=== PATIENT | male | born 1935 | race Caucasian/White ===

== ENCOUNTER 2017-06-12 14:31 | Inpatient (IN) | payer MEDICARE, MEDICAID, OTHER ==
[~2017-06-12] VITALS: Ht 182.9 cm; Wt 101.2 kg
[~2017-06-12 14:31] MED LIST: ALBU6.7H INH; AMLO5TAB PO; BETA1TAB18 PO; CEPH500C5 PO; DOCU250C4 PO; FINA5TAB11 PO; FLO0.4C PO; IRON-32 PO; LEVO25TA7 PO; MOME17SP BOTHNARES; MV-M1TAB2 PO; PANT-47 PO; PHEN-716 PO; SENN1TAB89
[2017-06-12] MEDS ORDERED: acetaminophen 325mg tablet PO STA (14:49)
[2017-06-12] MEDS ORDERED: cefepime 2g/NS 100ml ADVANTAGE 100 ML IV SCH (15:05)
[2017-06-12 15:07] LABS: CLARITY,URINE CLOUDY (Clear); COLOR,URINE YELLOW (Yellow); GLUCOSE, URINE NEGATIVE (Neg); KETONES,URINE NEGATIVE (Neg); LEUKOCYTE ESTERASE ,URINE MODERATE (Neg); NITRITES, URINE POSITIVE (Neg); OCCULT BLOOD,URINE LARGE (Neg); PROTEIN,URINE >=300 mg/dl (Neg); UROBILINOGEN,URINE 0.2 E.U/dL (0.2-1.0)
[2017-06-12 15:08] LABS: UA COLLECTION TYPE CLN CATCH MIDSTREAM
[2017-06-12 15:13] LABS: BACTERIA,URINE 2+ /HPF (Neg); RBC,URINE TNTC /HPF (0-2); WBC,URINE 50-100 /HPF (0-4)
[2017-06-12 15:15] LABS: SQUAMOUS EPITHELIAL CELL,UR FEW /LPF (FEW)
[2017-06-12] MEDS ORDERED: ondansetron/PF 4mg/2ml inj IV ONE (15:15)
[2017-06-12] MEDS ORDERED: normal saline 1000ML IV soln IVB ONE ×2 (15:15→18:15)
[2017-06-12 15:41] LABS: BASOPHILS % (AUTO) 0 % (0-1); EOSINOPHILS % (AUTO) 0.4 % (0-6); HEMATOCRIT 29.6 % (42.0-52.0); HEMOGLOBIN 9.9 g/dl (14.0-17.9); LYMPHOCYTES # (AUTO) 0.5 X10'3 (1.1-4.8); LYMPHOCYTES % (AUTO) 7.8 % (21-51); MEAN CORPUSCULAR HEMOGLOBIN 36.5 PG (27.0-31.0); MEAN CORPUSCULAR HGB CONC 33.6 % (33.0-36.5); MEAN CORPUSCULAR VOLUME 108.8 FL (78-98); MONOCYTES # (AUTO) 0.4 X10'3 (0-0.9); MONOCYTES % (AUTO) 5.5 % (2-12); NEUTROPHILS # (AUTO) 5.8 X10'3 (1.8-7.7); NEUTROPHILS % (AUTO) 86.3 % (42-75); PLATELET COUNT 157 X10'3 (140-440); RED BLOOD COUNT 2.72 X10'6 (4.70-6.10); RED CELL DISTRIBUTION WIDTH 19.6 % (11.5-14.5); WHITE BLOOD COUNT 6.7 X10'3 (4.5-11.0)
[2017-06-12 15:49] LABS: INR 1.3 INR; PARTIAL THROMBOPLASTIN TIME 27 SECONDS (22-32); PROTHROMBIN TIME 13.4 SECONDS (9.0-12.0)
[2017-06-12 15:54] LABS: ALANINE AMINOTRANSFERASE 38 U/L (12-78); ALBUMIN 2.2 G/DL (3.4-5.0); ALBUMIN/GLOBULIN RATIO 0.4 (1.1-1.5); ALKALINE PHOSPHATASE 125 IU/L (46-116); ANION GAP 4 (8-16); ASPARTATE AMINO TRANSFERASE 69 U/L (10-37); BILIRUBIN,TOTAL 0.9 MG/DL (0.1-1.0); BLOOD UREA NITROGEN 25 MG/DL (7-18); BUN/CREATININE RATIO 19.2 (5.4-32.0); CALCIUM 8.2 MG/DL (8.5-10.1); CHLORIDE 105 MMOL/L (99-107); GLUCOSE 104 MG/DL (70-104); MAGNESIUM 1.4 MG/DL (1.5-2.4); POTASSIUM 4.5 MMOL/L (3.5-5.1); SODIUM 135 MMOL/L (135-145); TOTAL CARBON DIOXIDE 26.4 MMOL/L (24-32); TOTAL PROTEIN 7.1 G/DL (6.4-8.2); eGFR 53 ML/MIN
[2017-06-12] MEDS ORDERED: ipratropium/albuterol 3ml nebule NEB ONE (16:25)
[2017-06-12] MEDS ORDERED: magnesium 2GM in 50ml NS 50 ML IV ONE (17:35)
[2017-06-12] MEDS ORDERED: mag hydrox/Alum hydrox/simeth 30ml oral suspension PO PRN (18:15)
[2017-06-12] MEDS ORDERED: magnesium hydroxide 30ml (MOM) UD suspension PO PRN (18:15)
[2017-06-12] MEDS ORDERED: magnesium Cl slow-release 64mg tablet PO PRN (18:15)
[2017-06-12] MEDS ORDERED: magnesium 2GM in 50ml NS 50 ML IV PRN (18:15)
[2017-06-12] MEDS ORDERED: magnesium 4gm in 100ml NS 100 ML IV PRN (18:15)
[2017-06-12] MEDS ORDERED: acetaminophen 325mg tablet PO PRN (18:15)
[2017-06-12] MEDS: enoxaparin 40mg/0.4ml syringe SUBCUT SCH (19:18)
[2017-06-12] MEDS ORDERED: ALBUTEROL SULFATE INH SCH (20:00)
[2017-06-12 21:00] VITALS: BP 109/55
[2017-06-12] MEDS ORDERED: temazepam 15mg capsule PO PRN (21:00)
[2017-06-12] MEDS: normal saline 1000ml 1,000 ML IV SCH (21:44)
[2017-06-12] MEDS: albuterol 2.5 MG/3 ML nebule NEB SCH (23:02)
[2017-06-13] VITALS: BP 130/65
[2017-06-13] MEDS ORDERED: PHENAZOPYRIDINE HCL PO SCH
[2017-06-13] MEDS: HYDROcodone/acetaminophen 5mg/325mg tablet PO PRN (00:11)
[2017-06-13 04:30] VITALS: BP 151/87
[2017-06-13 06:13] LABS: BASOPHILS % (AUTO) 0.4 % (0-1); EOSINOPHILS # (AUTO) 0.1 X10'3 (0-0.9); EOSINOPHILS % (AUTO) 1.4 % (0-6); HEMATOCRIT 25.8 % (42.0-52.0); HEMOGLOBIN 8.7 g/dl (14.0-17.9); LYMPHOCYTES # (AUTO) 0.7 X10'3 (1.1-4.8); MEAN CORPUSCULAR HEMOGLOBIN 36.3 PG (27.0-31.0); MEAN CORPUSCULAR HGB CONC 33.7 % (33.0-36.5); MEAN CORPUSCULAR VOLUME 107.5 FL (78-98); MEAN PLATELET VOLUME 8.5 FL (7.4-10.4); MONOCYTES # (AUTO) 0.5 X10'3 (0-0.9); MONOCYTES % (AUTO) 9.7 % (2-12); NEUTROPHILS # (AUTO) 3.9 X10'3 (1.8-7.7); NEUTROPHILS % (AUTO) 74.5 % (42-75); PLATELET COUNT 114 X10'3 (140-440); RED CELL DISTRIBUTION WIDTH 19.1 % (11.5-14.5); WHITE BLOOD COUNT 5.3 X10'3 (4.5-11.0)
[2017-06-13 06:27] LABS: ALANINE AMINOTRANSFERASE 38 U/L (12-78); ALBUMIN 1.9 G/DL (3.4-5.0); ALBUMIN/GLOBULIN RATIO 0.4 (1.1-1.5); ALKALINE PHOSPHATASE 98 IU/L (46-116); ANION GAP 5 (8-16); ASPARTATE AMINO TRANSFERASE 68 U/L (10-37); BILIRUBIN,TOTAL 0.8 MG/DL (0.1-1.0); BLOOD UREA NITROGEN 26 MG/DL (7-18); CALCIUM 7.8 MG/DL (8.5-10.1); CHLORIDE 107 MMOL/L (99-107); GLUCOSE 92 MG/DL (70-104); MAGNESIUM 2.6 MG/DL (1.5-2.4); POTASSIUM 4.7 MMOL/L (3.5-5.1); SODIUM 136 MMOL/L (135-145); TOTAL CARBON DIOXIDE 23.6 MMOL/L (24-32); TOTAL PROTEIN 6.2 G/DL (6.4-8.2); eGFR 53 ML/MIN
[2017-06-13] MEDS: albuterol 2.5 MG/3 ML nebule NEB SCH ×2 (07:32→19:57)
[2017-06-13 07:53] VITALS: BP 144/64
[2017-06-13] MEDS ORDERED: non-formulary drug (Amlodipine Besylate 1 TABLET) PO SCH (08:00)
[2017-06-13] MEDS ORDERED: cefepime 2gm inj IV SCH (08:00)
[2017-06-13] MEDS: fluticasone nasal spray 16GM bottle NS SCH (08:00)
[2017-06-13] MEDS ORDERED: non-formulary drug (Mometasone Furoate* (Nasonex*) 2 SPRAYS) BOTHNARES SCH (08:00)
[2017-06-13 08:59] LABS: ANISOCYTOSIS 2+; BURR CELLS 1+; PLATELET ESTIMATE DECREASED; POIKILOCYTOSIS 1+
[2017-06-13] MEDS: cefepime inj. 1 GM in normal saline 100ml IV soln 100 ML IV SCH ×2 (09:11→20:36)
[2017-06-13] MEDS: docusate sod 250mg capsule PO SCH (09:12)
[2017-06-13] MEDS: amLODIPine 5mg tablet PO SCH (09:12)
[2017-06-13] MEDS: tamsulosin 0.4mg capsule PO SCH (09:12)
[2017-06-13] MEDS: pantoprazole 40mg Tablet.DR PO SCH (09:13)
[2017-06-13] MEDS: finasteride 5mg tablet PO SCH (09:13)
[2017-06-13] MEDS: beta-carotene(A) w/C & E + minerals tab PO SCH (09:13)
[2017-06-13] MEDS: phenazopyridine 100mg tablet PO SCH ×3 (09:13→17:25)
[2017-06-13] MEDS: levoTHYROXINE 25mcg tablet PO SCH (09:14)
[2017-06-13] MEDS: enoxaparin 40mg/0.4ml syringe SUBCUT SCH (09:15)
[2017-06-13 12:30] VITALS: BP 150/60
[2017-06-13] MEDS: normal saline 1000ml 1,000 ML IV SCH (14:37)
[2017-06-13] MEDS ORDERED: PROP10TA10 PO (16:15)
[2017-06-13] MEDS ORDERED: LEVO25TA2 PO (16:16)
[2017-06-13] MEDS ORDERED: AZEL6DRO6 EACHEYE (16:17)
[2017-06-13] MEDS ORDERED: CALC1TAB81 (16:20)
[2017-06-13] MEDS ORDERED: IRON150C5 PO (16:22)
[2017-06-13] MEDS ORDERED: MAGN400C PO (16:23)
[2017-06-13] MEDS ORDERED: ACET500C5 PO (16:26)
[2017-06-13] MEDS: vancomycin/NS 1 GM ADD-VANTAGE 250 ML X 1 DOSE IV SCH (17:26)
[2017-06-13 18:00] VITALS: BP 125/53
[2017-06-14] VITALS (15 sets, daily range): BP systolic 104–142; BP diastolic 44–89
[2017-06-14] MEDS: HYDROcodone/acetaminophen 5mg/325mg tablet PO PRN ×2 (05:59→14:53)
[2017-06-14 06:31] LABS: BASOPHILS % (AUTO) 0.1 % (0-1); EOSINOPHILS # (AUTO) 0.2 X10'3 (0-0.9); EOSINOPHILS % (AUTO) 2.2 % (0-6); HEMATOCRIT 28.7 % (42.0-52.0); HEMOGLOBIN 10.2 g/dl (14.0-17.9); LYMPHOCYTES # (AUTO) 1.2 X10'3 (1.1-4.8); MEAN CORPUSCULAR HGB CONC 35.6 % (33.0-36.5); MEAN CORPUSCULAR VOLUME 106.9 FL (78-98); MEAN PLATELET VOLUME 8.9 FL (7.4-10.4); MONOCYTES # (AUTO) 0.5 X10'3 (0-0.9); MONOCYTES % (AUTO) 7.9 % (2-12); NEUTROPHILS % (AUTO) 72.8 % (42-75); PLATELET COUNT 119 X10'3 (140-440); RED BLOOD COUNT 2.69 X10'6 (4.70-6.10); RED CELL DISTRIBUTION WIDTH 17.9 % (11.5-14.5); WHITE BLOOD COUNT 6.9 X10'3 (4.5-11.0)
[2017-06-14 06:40] LABS: ALANINE AMINOTRANSFERASE 34 U/L (12-78); ALBUMIN/GLOBULIN RATIO 0.4 (1.1-1.5); ALKALINE PHOSPHATASE 99 IU/L (46-116); ANION GAP 6 (8-16); ASPARTATE AMINO TRANSFERASE 68 U/L (10-37); BILIRUBIN,TOTAL 0.8 MG/DL (0.1-1.0); BLOOD UREA NITROGEN 23 MG/DL (7-18); BUN/CREATININE RATIO 20.9 (5.4-32.0); CALCIUM 7.8 MG/DL (8.5-10.1); CHLORIDE 106 MMOL/L (99-107); GLUCOSE 90 MG/DL (70-104); MAGNESIUM 1.9 MG/DL (1.5-2.4); POTASSIUM 4.4 MMOL/L (3.5-5.1); SODIUM 136 MMOL/L (135-145); TOTAL CARBON DIOXIDE 24.5 MMOL/L (24-32); TOTAL PROTEIN 6.7 G/DL (6.4-8.2); eGFR 64 ML/MIN
[2017-06-14] MEDS: levoTHYROXINE 25mcg tablet PO SCH (08:00)
[2017-06-14] MEDS: finasteride 5mg tablet PO SCH (08:00)
[2017-06-14] MEDS: pantoprazole 40mg Tablet.DR PO SCH (08:00)
[2017-06-14] MEDS: amLODIPine 5mg tablet PO SCH (08:00)
[2017-06-14] MEDS: albuterol 2.5 MG/3 ML nebule NEB SCH ×3 (08:41→21:18)
[2017-06-14] MEDS: cefepime inj. 1 GM in normal saline 100ml IV soln 100 ML IV SCH ×2 (08:57→20:53)
[2017-06-14] MEDS: LACTOBACILLUS RHAMNOSUS GG 15 billion unit sprinkle caps PO SCH (08:58)
[2017-06-14] MEDS: beta-carotene(A) w/C & E + minerals tab PO SCH (08:58)
[2017-06-14] MEDS: tamsulosin 0.4mg capsule PO SCH (08:59)
[2017-06-14] MEDS: docusate sod 250mg capsule PO SCH (08:59)
[2017-06-14] MEDS: phenazopyridine 100mg tablet PO SCH ×3 (08:59→20:46)
[2017-06-14] MEDS: enoxaparin 40mg/0.4ml syringe SUBCUT SCH (09:15)
[2017-06-14] MEDS: fluticasone nasal spray 16GM bottle NS SCH (09:15)
[2017-06-14] MEDS: normal saline 1000ml 1,000 ML IV SCH (09:25)
[2017-06-14] MEDS: vancomycin/NS 1 GM ADD-VANTAGE 250 ML X 1 DOSE IV SCH (17:20)
[2017-06-14] MEDS ORDERED: diltiazem-D5W 125mg/125ml 125 ML IV SCH (19:45)
[2017-06-14] MEDS ORDERED: enoxaparin 40mg/0.4ml syringe SUBCUT SCH (20:00)
[2017-06-14] MEDS ORDERED: enoxaparin 30mg/0.3ml syringe SUBCUT SCH (20:00)
[2017-06-15] VITALS (20 sets, daily range): BP systolic 77–170; BP diastolic 39–87
[2017-06-15] MEDS: HYDROcodone/acetaminophen 5mg/325mg tablet PO PRN (03:24)
[2017-06-15 05:30] LABS: BASOPHILS % (AUTO) 0.7 % (0-1); EOSINOPHILS # (AUTO) 0.3 X10'3 (0-0.9); EOSINOPHILS % (AUTO) 6.7 % (0-6); HEMOGLOBIN 8.9 g/dl (14.0-17.9); LYMPHOCYTES # (AUTO) 0.9 X10'3 (1.1-4.8); LYMPHOCYTES % (AUTO) 18.3 % (21-51); MEAN CORPUSCULAR HEMOGLOBIN 36.3 PG (27.0-31.0); MEAN CORPUSCULAR HGB CONC 34.1 % (33.0-36.5); MEAN CORPUSCULAR VOLUME 106.6 FL (78-98); MEAN PLATELET VOLUME 8.5 FL (7.4-10.4); MONOCYTES # (AUTO) 0.4 X10'3 (0-0.9); MONOCYTES % (AUTO) 8.7 % (2-12); NEUTROPHILS # (AUTO) 3.1 X10'3 (1.8-7.7); NEUTROPHILS % (AUTO) 65.6 % (42-75); PLATELET COUNT 113 X10'3 (140-440); RED BLOOD COUNT 2.44 X10'6 (4.70-6.10); RED CELL DISTRIBUTION WIDTH 18.9 % (11.5-14.5); WHITE BLOOD COUNT 4.8 X10'3 (4.5-11.0)
[2017-06-15 06:17] LABS: ALANINE AMINOTRANSFERASE 33 U/L (12-78); ALBUMIN 1.7 G/DL (3.4-5.0); ALBUMIN/GLOBULIN RATIO 0.4 (1.1-1.5); ALKALINE PHOSPHATASE 83 IU/L (46-116); ANION GAP 7 (8-16); ASPARTATE AMINO TRANSFERASE 56 U/L (10-37); BILIRUBIN,TOTAL 0.8 MG/DL (0.1-1.0); BLOOD UREA NITROGEN 22 MG/DL (7-18); CALCIUM 7.7 MG/DL (8.5-10.1); CHLORIDE 109 MMOL/L (99-107); GLUCOSE 90 MG/DL (70-104); MAGNESIUM 1.6 MG/DL (1.5-2.4); SODIUM 139 MMOL/L (135-145); TOTAL CARBON DIOXIDE 23.3 MMOL/L (24-32); eGFR 71 ML/MIN
[2017-06-15] MEDS: amLODIPine 5mg tablet PO SCH (08:00)
[2017-06-15] MEDS: cefepime inj. 1 GM in normal saline 100ml IV soln 100 ML IV SCH (08:00)
[2017-06-15] MEDS ORDERED: diltiazem 5mg/ml 5ml inj. IV ONE ×2 (08:15→09:35)
[2017-06-15] MEDS: finasteride 5mg tablet PO SCH (08:35)
[2017-06-15] MEDS: pantoprazole 40mg Tablet.DR PO SCH (08:35)
[2017-06-15] MEDS: tamsulosin 0.4mg capsule PO SCH (08:35)
[2017-06-15] MEDS: phenazopyridine 100mg tablet PO SCH ×3 (08:35→19:48)
[2017-06-15] MEDS: LACTOBACILLUS RHAMNOSUS GG 15 billion unit sprinkle caps PO SCH (08:36)
[2017-06-15] MEDS: docusate sod 250mg capsule PO SCH (08:36)
[2017-06-15] MEDS: beta-carotene(A) w/C & E + minerals tab PO SCH (08:36)
[2017-06-15] MEDS: fluticasone nasal spray 16GM bottle NS SCH (08:37)
[2017-06-15] MEDS: albuterol 2.5 MG/3 ML nebule NEB SCH ×2 (09:00→20:25)
[2017-06-15] MEDS: cefTRIAXone 1g/NS 100ml IVPB 100 ML IV SCH (09:39)
[2017-06-15] MEDS: enoxaparin 40mg/0.4ml syringe SUBCUT SCH (09:39)
[2017-06-15] MEDS ORDERED: diltiazem 30mg tablet PO PRN (12:00)
[2017-06-15] MEDS ORDERED: amiodarone 150mg/dext, iso-os 100 ML IV ONE (12:15)
[2017-06-15] MEDS: amiodarone/D5 450MG/250ML BAG 250 ML IV SCH ×2 (13:00→21:33)
[2017-06-15] MEDS: normal saline 1000ml 1,000 ML IV SCH (18:00)
[2017-06-15] MEDS: diltiazem 30mg tablet PO SCH ×2 (18:00→21:31)
[2017-06-15] MEDS: nitroGLYCERIN 0.4mg SUBLingual tab SL PRN ×2 (23:07→23:11)
[2017-06-15] MEDS: morphine 2 MG/ML inj. syringe IV PRN (23:07)
[2017-06-16] VITALS (17 sets, daily range): BP systolic 107–143; BP diastolic 55–88
[2017-06-16] MEDS: diltiazem 30mg tablet PO SCH ×5 (02:11→20:18)
[2017-06-16 06:20] LABS: BASOPHILS % (AUTO) 0.4 % (0-1); EOSINOPHILS # (AUTO) 0.4 X10'3 (0-0.9); EOSINOPHILS % (AUTO) 7.7 % (0-6); HEMATOCRIT 26.7 % (42.0-52.0); LYMPHOCYTES # (AUTO) 1.2 X10'3 (1.1-4.8); LYMPHOCYTES % (AUTO) 22.9 % (21-51); MEAN CORPUSCULAR HEMOGLOBIN 36.5 PG (27.0-31.0); MEAN CORPUSCULAR HGB CONC 33.8 % (33.0-36.5); MEAN CORPUSCULAR VOLUME 107.7 FL (78-98); MEAN PLATELET VOLUME 8.6 FL (7.4-10.4); MONOCYTES # (AUTO) 0.5 X10'3 (0-0.9); MONOCYTES % (AUTO) 8.7 % (2-12); NEUTROPHILS # (AUTO) 3.1 X10'3 (1.8-7.7); NEUTROPHILS % (AUTO) 60.3 % (42-75); PLATELET COUNT 137 X10'3 (140-440); RED BLOOD COUNT 2.48 X10'6 (4.70-6.10); RED CELL DISTRIBUTION WIDTH 19.6 % (11.5-14.5); WHITE BLOOD COUNT 5.2 X10'3 (4.5-11.0)
[2017-06-16 06:47] LABS: ALANINE AMINOTRANSFERASE 29 U/L (12-78); ALBUMIN 1.7 G/DL (3.4-5.0); ALBUMIN/GLOBULIN RATIO 0.4 (1.1-1.5); ALKALINE PHOSPHATASE 103 IU/L (46-116); ANION GAP 5 (8-16); ASPARTATE AMINO TRANSFERASE 57 U/L (10-37); BILIRUBIN,TOTAL 0.8 MG/DL (0.1-1.0); BLOOD UREA NITROGEN 19 MG/DL (7-18); BUN/CREATININE RATIO 21.1 (5.4-32.0); CALCIUM 7.9 MG/DL (8.5-10.1); CHLORIDE 108 MMOL/L (99-107); GLUCOSE 89 MG/DL (70-104); MAGNESIUM 1.5 MG/DL (1.5-2.4); POTASSIUM 3.7 MMOL/L (3.5-5.1); SODIUM 139 MMOL/L (135-145); TOTAL CARBON DIOXIDE 25.6 MMOL/L (24-32); TOTAL PROTEIN 6.1 G/DL (6.4-8.2); TROPONIN I 0.05 NG/ML (0.0-0.05); eGFR 81 ML/MIN
[2017-06-16] MEDS: phenazopyridine 100mg tablet PO SCH ×3 (07:21→17:57)
[2017-06-16] MEDS: beta-carotene(A) w/C & E + minerals tab PO SCH (07:22)
[2017-06-16] MEDS: tamsulosin 0.4mg capsule PO SCH (07:22)
[2017-06-16] MEDS: LACTOBACILLUS RHAMNOSUS GG 15 billion unit sprinkle caps PO SCH (07:22)
[2017-06-16] MEDS: finasteride 5mg tablet PO SCH (07:22)
[2017-06-16] MEDS: docusate sod 250mg capsule PO SCH (07:23)
[2017-06-16] MEDS: fluticasone nasal spray 16GM bottle NS SCH (07:23)
[2017-06-16] MEDS: pantoprazole 40mg Tablet.DR PO SCH (07:23)
[2017-06-16] MEDS: enoxaparin 40mg/0.4ml syringe SUBCUT SCH (07:23)
[2017-06-16] MEDS: cefTRIAXone 1g/NS 100ml IVPB 100 ML IV SCH (07:24)
[2017-06-16] MEDS ORDERED: diltiazem 30mg tablet PO ONE (08:20)
[2017-06-16] MEDS: nystatin 500,000 unit/5ML UD oral suspension PO SCH ×3 (09:04→20:18)
[2017-06-16] MEDS: HYDROcodone/acetaminophen 5mg/325mg tablet PO PRN ×2 (09:04→18:59)
[2017-06-16 09:37] LABS: LIPASE 80 U/L (73-393)
[2017-06-16] MEDS ORDERED: furosemide 20 MG/2 ML vial IV ONE (10:15)
[2017-06-16 11:07] LABS: CLARITY,URINE CLEAR (Clear); COLOR,URINE ORANGE (Yellow); GLUCOSE, URINE NEGATIVE (Neg); KETONES,URINE NEGATIVE (Neg); LEUKOCYTE ESTERASE ,URINE LARGE (Neg); OCCULT BLOOD,URINE LARGE (Neg)
[2017-06-16 11:19] LABS: UA COLLECTION TYPE VOIDED
[2017-06-16 11:21] LABS: BACTERIA,URINE FEW /HPF (Neg); MUCUS STRANDS FEW /LPF (Neg); RBC,URINE 0-2 /HPF (0-2); SQUAMOUS EPITHELIAL CELL,UR FEW /LPF (FEW); WBC,URINE 20-30 /HPF (0-4)
[2017-06-16] MEDS: apixaban 5mg tablet PO SCH ×2 (11:25→20:16)
[2017-06-16] MEDS: amiodarone/D5 450MG/250ML BAG 250 ML IV SCH (11:26)
[2017-06-16] MEDS ORDERED: digoxin 250mcg/ml 2ml ampule IV ONE (13:00)
[2017-06-16] MEDS ORDERED: nystatin 500,000 unit/5ML UD oral suspension PO SCH (13:00)
[2017-06-16] MEDS: amiodarone 200mg tablet PO SCH ×2 (13:56→20:16)
[2017-06-16] MEDS ORDERED: VANCOMYCIN LEVEL IV ONE (15:30)
[2017-06-16] MEDS: LACTOSE-FREE FOOD 237ML (BOOST) PO SCH (17:57)
[2017-06-16] MEDS: nitroGLYCERIN 0.4mg SUBLingual tab SL PRN ×2 (20:15→20:33)
[2017-06-16] MEDS: ondansetron/PF 4mg/2ml inj IV PRN (20:34)
[2017-06-17] MEDS: morphine 2 MG/ML inj. syringe IV PRN (01:12)
[2017-06-17] MEDS: diltiazem 30mg tablet PO SCH ×4 (01:13→19:41)
[2017-06-17 03:00] VITALS: BP 111/54
[2017-06-17 05:21] LABS: BASOPHILS % (AUTO) 0.1 % (0-1); EOSINOPHILS # (AUTO) 0.2 X10'3 (0-0.9); EOSINOPHILS % (AUTO) 1.9 % (0-6); HEMATOCRIT 27.5 % (42.0-52.0); HEMOGLOBIN 9.4 g/dl (14.0-17.9); LYMPHOCYTES # (AUTO) 1.2 X10'3 (1.1-4.8); MEAN CORPUSCULAR HEMOGLOBIN 36.8 PG (27.0-31.0); MEAN CORPUSCULAR HGB CONC 34.1 % (33.0-36.5); MEAN PLATELET VOLUME 8.4 FL (7.4-10.4); MONOCYTES # (AUTO) 0.8 X10'3 (0-0.9); MONOCYTES % (AUTO) 9.7 % (2-12); NEUTROPHILS # (AUTO) 6.2 X10'3 (1.8-7.7); NEUTROPHILS % (AUTO) 74.3 % (42-75); PLATELET COUNT 155 X10'3 (140-440); RED BLOOD COUNT 2.54 X10'6 (4.70-6.10); RED CELL DISTRIBUTION WIDTH 19.3 % (11.5-14.5); WHITE BLOOD COUNT 8.3 X10'3 (4.5-11.0)
[2017-06-17 05:48] LABS: ALANINE AMINOTRANSFERASE 32 U/L (12-78); ALBUMIN 1.7 G/DL (3.4-5.0); ALBUMIN/GLOBULIN RATIO 0.4 (1.1-1.5); ALKALINE PHOSPHATASE 113 IU/L (46-116); ANION GAP 5 (8-16); ASPARTATE AMINO TRANSFERASE 58 U/L (10-37); BILIRUBIN,TOTAL 0.9 MG/DL (0.1-1.0); BLOOD UREA NITROGEN 19 MG/DL (7-18); BUN/CREATININE RATIO 15.8 (5.4-32.0); CALCIUM 7.6 MG/DL (8.5-10.1); CHLORIDE 108 MMOL/L (99-107); GLUCOSE 102 MG/DL (70-104); MAGNESIUM 1.5 MG/DL (1.5-2.4); POTASSIUM 4.5 MMOL/L (3.5-5.1); SODIUM 139 MMOL/L (135-145); TOTAL CARBON DIOXIDE 26.2 MMOL/L (24-32); TOTAL PROTEIN 5.9 G/DL (6.4-8.2); eGFR 58 ML/MIN
[2017-06-17 07:00] VITALS: BP 130/69
[2017-06-17] MEDS: apixaban 5mg tablet PO SCH (08:00)
[2017-06-17] MEDS: amiodarone 200mg tablet PO SCH ×2 (08:31→19:43)
[2017-06-17] MEDS: finasteride 5mg tablet PO SCH (08:31)
[2017-06-17] MEDS: beta-carotene(A) w/C & E + minerals tab PO SCH (08:31)
[2017-06-17] MEDS: LACTOBACILLUS RHAMNOSUS GG 15 billion unit sprinkle caps PO SCH (08:34)
[2017-06-17] MEDS: pantoprazole 40mg Tablet.DR PO SCH (08:34)
[2017-06-17] MEDS: docusate sod 250mg capsule PO SCH (08:34)
[2017-06-17] MEDS: phenazopyridine 100mg tablet PO SCH ×3 (08:35→18:00)
[2017-06-17] MEDS: nystatin 500,000 unit/5ML UD oral suspension PO SCH ×3 (08:35→20:00)
[2017-06-17] MEDS: fluticasone nasal spray 16GM bottle NS SCH (08:36)
[2017-06-17] MEDS: cefTRIAXone 1g/NS 100ml IVPB 100 ML IV SCH (08:38)
[2017-06-17] MEDS: tamsulosin 0.4mg capsule PO SCH (08:40)
[2017-06-17] MEDS: LACTOSE-FREE FOOD 237ML (BOOST) PO SCH ×3 (08:43→18:00)
[2017-06-17] MEDS: albuterol 2.5 MG/3 ML nebule NEB SCH ×2 (08:56→20:58)
[2017-06-17 11:00] VITALS: BP 146/64
[2017-06-17 15:00] VITALS: BP 112/62
[2017-06-17] MEDS: normal saline 1000ml 1,000 ML IV SCH (18:00)
[2017-06-17 19:00] VITALS: BP 131/53
[2017-06-17] MEDS: metoprolol tartrate 25mg tablet PO SCH (19:43)
[2017-06-17 23:00] VITALS: BP 119/93
[2017-06-18] MEDS: diltiazem 30mg tablet PO SCH (01:30)
[2017-06-18 03:00] VITALS: BP 130/45
[2017-06-18] MEDS: ondansetron/PF 4mg/2ml inj IV PRN (04:52)
[2017-06-18 06:00] VITALS: BP 120/48
[2017-06-18 06:17] LABS: MAGNESIUM 1.4 MG/DL (1.5-2.4)
[2017-06-18] MEDS: cefTRIAXone 1g/NS 100ml IVPB 100 ML IV SCH (07:42)
[2017-06-18] MEDS: nystatin 500,000 unit/5ML UD oral suspension PO SCH ×3 (07:46→21:58)
[2017-06-18] MEDS: fluticasone nasal spray 16GM bottle NS SCH (07:46)
[2017-06-18] MEDS: phenazopyridine 100mg tablet PO SCH ×3 (07:47→17:17)
[2017-06-18] MEDS: amiodarone 200mg tablet PO SCH ×2 (07:47→20:37)
[2017-06-18] MEDS: pantoprazole 40mg Tablet.DR PO SCH (07:47)
[2017-06-18] MEDS: beta-carotene(A) w/C & E + minerals tab PO SCH (07:47)
[2017-06-18] MEDS: metoprolol tartrate 25mg tablet PO SCH ×2 (07:47→20:38)
[2017-06-18] MEDS: tamsulosin 0.4mg capsule PO SCH (07:47)
[2017-06-18] MEDS: finasteride 5mg tablet PO SCH (07:48)
[2017-06-18] MEDS: LACTOSE-FREE FOOD 237ML (BOOST) PO SCH ×4 (07:48→20:37)
[2017-06-18] MEDS: LACTOBACILLUS RHAMNOSUS GG 15 billion unit sprinkle caps PO SCH (07:48)
[2017-06-18] MEDS: docusate sod 250mg capsule PO SCH (07:50)
[2017-06-18 08:14] LABS: ALANINE AMINOTRANSFERASE 33 U/L (12-78); ALBUMIN 1.7 G/DL (3.4-5.0); ALBUMIN/GLOBULIN RATIO 0.4 (1.1-1.5); ALKALINE PHOSPHATASE 105 IU/L (46-116); ANION GAP 7 (8-16); ASPARTATE AMINO TRANSFERASE 57 U/L (10-37); BILIRUBIN,TOTAL 0.9 MG/DL (0.1-1.0); BLOOD UREA NITROGEN 22 MG/DL (7-18); CALCIUM 7.6 MG/DL (8.5-10.1); CHLORIDE 107 MMOL/L (99-107); GLUCOSE 98 MG/DL (70-104); POTASSIUM 4.4 MMOL/L (3.5-5.1); SODIUM 137 MMOL/L (135-145); TOTAL CARBON DIOXIDE 23.4 MMOL/L (24-32); TOTAL PROTEIN 5.8 G/DL (6.4-8.2); eGFR 64 ML/MIN
[2017-06-18] MEDS ORDERED: potassium Cl 40MEQ/NS 500ml 500 ML IV PRN ×2 (09:15)
[2017-06-18] MEDS ORDERED: magnesium 2GM in 50ml NS 50 ML IV PRN (09:15)
[2017-06-18] MEDS ORDERED: magnesium 4gm in 100ml NS 100 ML IV PRN (09:15)
[2017-06-18 10:17] LABS: C DIFF ANTIGEN POSITIVE (NEGATIVE); C DIFF SPECIMEN=DIARRHEA? ACCEPTABLE; C DIFFICILE TOXINS A&B POSITIVE (Neg)
[2017-06-18 11:00] VITALS: BP 125/59
[2017-06-18] MEDS: albuterol 2.5 MG/3 ML nebule NEB SCH ×2 (11:47→21:21)
[2017-06-18] MEDS: metroNIDAZOLE 500mg tablet PO SCH ×2 (13:31→20:38)
[2017-06-18] MEDS: levoTHYROXINE 25mcg tablet PO SCH (14:23)
[2017-06-18 15:00] VITALS: BP 122/46
[2017-06-18 18:00] VITALS: BP 111/49
[2017-06-18] MEDS: HYDROcodone/acetaminophen 5mg/325mg tablet PO PRN (20:37)
[2017-06-18 22:00] VITALS: BP 137/49
[2017-06-19] VITALS (8 sets, daily range): BP systolic 102–152; BP diastolic 36–79
[2017-06-19] MEDS: metroNIDAZOLE 500mg tablet PO SCH ×2 (03:30→08:02)
[2017-06-19 06:33] LABS: MAGNESIUM 1.7 MG/DL (1.5-2.4)
[2017-06-19] MEDS: levoTHYROXINE 25mcg tablet PO SCH (08:00)
[2017-06-19] MEDS: beta-carotene(A) w/C & E + minerals tab PO SCH (08:00)
[2017-06-19] MEDS: finasteride 5mg tablet PO SCH (08:00)
[2017-06-19] MEDS: LACTOBACILLUS RHAMNOSUS GG 15 billion unit sprinkle caps PO SCH (08:01)
[2017-06-19] MEDS: nystatin 500,000 unit/5ML UD oral suspension PO SCH ×3 (08:01→19:54)
[2017-06-19] MEDS: docusate sod 250mg capsule PO SCH (08:01)
[2017-06-19] MEDS: phenazopyridine 100mg tablet PO SCH ×3 (08:02→17:52)
[2017-06-19] MEDS: tamsulosin 0.4mg capsule PO SCH (08:02)
[2017-06-19] MEDS: fluticasone nasal spray 16GM bottle NS SCH (08:03)
[2017-06-19] MEDS: metoprolol tartrate 25mg tablet PO SCH ×2 (08:03→22:09)
[2017-06-19] MEDS: amiodarone 200mg tablet PO SCH ×2 (08:03→19:54)
[2017-06-19] MEDS: pantoprazole 40mg Tablet.DR PO SCH (08:04)
[2017-06-19 08:38] LABS: BASOPHILS % (AUTO) 0.2 % (0-1); EOSINOPHILS # (AUTO) 0.4 X10'3 (0-0.9); EOSINOPHILS % (AUTO) 5.1 % (0-6); HEMATOCRIT 23.7 % (42.0-52.0); HEMOGLOBIN 8.2 g/dl (14.0-17.9); LYMPHOCYTES % (AUTO) 13.1 % (21-51); MEAN CORPUSCULAR HEMOGLOBIN 37.4 PG (27.0-31.0); MEAN CORPUSCULAR HGB CONC 34.7 % (33.0-36.5); MEAN CORPUSCULAR VOLUME 107.7 FL (78-98); MEAN PLATELET VOLUME 8.4 FL (7.4-10.4); MONOCYTES # (AUTO) 0.7 X10'3 (0-0.9); MONOCYTES % (AUTO) 9.7 % (2-12); NEUTROPHILS # (AUTO) 5.5 X10'3 (1.8-7.7); NEUTROPHILS % (AUTO) 71.9 % (42-75); PLATELET COUNT 159 X10'3 (140-440); RED CELL DISTRIBUTION WIDTH 18.5 % (11.5-14.5); WHITE BLOOD COUNT 7.6 X10'3 (4.5-11.0)
[2017-06-19 08:48] LABS: ALBUMIN 1.6 G/DL (3.4-5.0); ANION GAP 5 (8-16); BLOOD UREA NITROGEN 24 MG/DL (7-18); CALCIUM 7.7 MG/DL (8.5-10.1); CHLORIDE 107 MMOL/L (99-107); GLUCOSE 90 MG/DL (70-104); POTASSIUM 4.3 MMOL/L (3.5-5.1); SODIUM 138 MMOL/L (135-145); TOTAL CARBON DIOXIDE 25.7 MMOL/L (24-32); eGFR 58 ML/MIN
[2017-06-19] MEDS: albuterol 2.5 MG/3 ML nebule NEB SCH (08:48)
[2017-06-19] MEDS: LACTOSE-FREE FOOD 237ML (BOOST) PO SCH ×2 (12:51→18:00)
[2017-06-19] MEDS: normal saline 1000ml 1,000 ML IV SCH (17:55)
[2017-06-19] MEDS: HYDROcodone/acetaminophen 5mg/325mg tablet PO PRN (19:54)
[2017-06-19 21:39] LABS: OCCULT BLOOD STOOL NEGATIVE (Neg)
[2017-06-20 01:41] VITALS: BP 120/43
[2017-06-20 03:19] VITALS: BP 131/45
[2017-06-20 06:00] VITALS: BP 138/48
[2017-06-20] MEDS: beta-carotene(A) w/C & E + minerals tab PO SCH (08:00)
[2017-06-20] MEDS: phenazopyridine 100mg tablet PO SCH (08:00)
[2017-06-20] MEDS: LACTOSE-FREE FOOD 237ML (BOOST) PO SCH (08:00)
[2017-06-20] MEDS: albuterol 2.5 MG/3 ML nebule NEB SCH ×2 (08:01→20:43)
[2017-06-20] MEDS: finasteride 5mg tablet PO SCH (10:44)
[2017-06-20] MEDS: levoTHYROXINE 25mcg tablet PO SCH (10:44)
[2017-06-20] MEDS: docusate sod 250mg capsule PO SCH (10:45)
[2017-06-20] MEDS: fluticasone nasal spray 16GM bottle NS SCH (10:45)
[2017-06-20] MEDS: pantoprazole 40mg Tablet.DR PO SCH (10:45)
[2017-06-20] MEDS: LACTOBACILLUS RHAMNOSUS GG 15 billion unit sprinkle caps PO SCH (10:45)
[2017-06-20] MEDS: nystatin 500,000 unit/5ML UD oral suspension PO SCH ×3 (10:45→20:40)
[2017-06-20] MEDS: amiodarone 200mg tablet PO SCH ×2 (10:45→20:40)
[2017-06-20] MEDS: metoprolol tartrate 25mg tablet PO SCH ×2 (10:46→20:40)
[2017-06-20] MEDS: tamsulosin 0.4mg capsule PO SCH (10:46)
[2017-06-20 12:00] VITALS: BP 145/46
[2017-06-20 16:19] VITALS: BP 140/55
[2017-06-20] MEDS: normal saline 1000ml 1,000 ML IV SCH (18:31)
[2017-06-20 20:00] VITALS: BP 151/64
[2017-06-20] MEDS ORDERED: metroNIDAZOLE 500mg tablet PO ONE (23:50)
[2017-06-21] VITALS: BP 140/60
[2017-06-21] MEDS: HYDROcodone/acetaminophen 5mg/325mg tablet PO PRN ×2 (00:32→17:52)
[2017-06-21] MEDS: normal saline 1000ml 1,000 ML IV SCH ×2 (00:42→17:56)
[2017-06-21 07:37] VITALS: BP 122/41
[2017-06-21] MEDS: docusate sod 250mg capsule PO SCH (08:00)
[2017-06-21] MEDS: albuterol 2.5 MG/3 ML nebule NEB SCH ×2 (09:13→20:47)
[2017-06-21] MEDS: tamsulosin 0.4mg capsule PO SCH (10:02)
[2017-06-21] MEDS: finasteride 5mg tablet PO SCH (10:03)
[2017-06-21] MEDS: metoprolol tartrate 25mg tablet PO SCH ×2 (10:03→20:01)
[2017-06-21] MEDS: levoTHYROXINE 25mcg tablet PO SCH (10:04)
[2017-06-21] MEDS: LACTOBACILLUS RHAMNOSUS GG 15 billion unit sprinkle caps PO SCH (10:04)
[2017-06-21] MEDS: pantoprazole 40mg Tablet.DR PO SCH (10:04)
[2017-06-21] MEDS: amiodarone 200mg tablet PO SCH ×2 (10:05→20:01)
[2017-06-21] MEDS: nystatin 500,000 unit/5ML UD oral suspension PO SCH ×3 (10:06→20:01)
[2017-06-21] MEDS: fluticasone nasal spray 16GM bottle NS SCH (10:06)
[2017-06-21 12:03] VITALS: BP 128/72
[2017-06-21 20:00] VITALS: BP 141/57
[2017-06-22] VITALS: BP 130/50
[2017-06-22] MEDS: normal saline 1000ml 1,000 ML IV SCH ×2 (05:39→17:35)
[2017-06-22 08:00] VITALS: BP 129/51
[2017-06-22] MEDS: docusate sod 250mg capsule PO SCH (08:00)
[2017-06-22] MEDS: levoTHYROXINE 25mcg tablet PO SCH (08:05)
[2017-06-22] MEDS: fluticasone nasal spray 16GM bottle NS SCH (08:05)
[2017-06-22] MEDS: LACTOBACILLUS RHAMNOSUS GG 15 billion unit sprinkle caps PO SCH (08:05)
[2017-06-22] MEDS: tamsulosin 0.4mg capsule PO SCH (08:06)
[2017-06-22] MEDS: amiodarone 200mg tablet PO SCH ×2 (08:06→20:33)
[2017-06-22] MEDS: nystatin 500,000 unit/5ML UD oral suspension PO SCH ×3 (08:07→20:33)
[2017-06-22] MEDS: metoprolol tartrate 25mg tablet PO SCH (08:07)
[2017-06-22] MEDS: finasteride 5mg tablet PO SCH (08:07)
[2017-06-22] MEDS: pantoprazole 40mg Tablet.DR PO SCH (08:07)
[2017-06-22] MEDS: albuterol 2.5 MG/3 ML nebule NEB SCH ×2 (08:47→20:20)
[2017-06-22 11:00] VITALS: BP 129/40
[2017-06-22 20:00] VITALS: BP 126/57
[2017-06-22] MEDS: metoprolol tartrate 12.5mg (1/2 tablet) PO SCH (20:33)
[2017-06-22] MEDS: HYDROcodone/acetaminophen 5mg/325mg tablet PO PRN (22:22)
[2017-06-23] VITALS: BP 145/69
[2017-06-23] MEDS: normal saline 1000ml 1,000 ML IV SCH ×2 (04:52→16:19)
[2017-06-23 05:25] LABS: BASOPHILS % (AUTO) 0.4 % (0-1); EOSINOPHILS # (AUTO) 0.2 X10'3 (0-0.9); EOSINOPHILS % (AUTO) 2.7 % (0-6); HEMATOCRIT 24.3 % (42.0-52.0); HEMOGLOBIN 8.6 g/dl (14.0-17.9); LYMPHOCYTES # (AUTO) 1.3 X10'3 (1.1-4.8); LYMPHOCYTES % (AUTO) 16.4 % (21-51); MEAN CORPUSCULAR HEMOGLOBIN 37.9 PG (27.0-31.0); MEAN CORPUSCULAR HGB CONC 35.1 % (33.0-36.5); MEAN CORPUSCULAR VOLUME 107.7 FL (78-98); MEAN PLATELET VOLUME 8.1 FL (7.4-10.4); MONOCYTES # (AUTO) 0.6 X10'3 (0-0.9); MONOCYTES % (AUTO) 7.3 % (2-12); NEUTROPHILS # (AUTO) 5.8 X10'3 (1.8-7.7); NEUTROPHILS % (AUTO) 73.2 % (42-75); PLATELET COUNT 198 X10'3 (140-440); RED BLOOD COUNT 2.26 X10'6 (4.70-6.10); WHITE BLOOD COUNT 7.9 X10'3 (4.5-11.0)
[2017-06-23 06:10] LABS: ALANINE AMINOTRANSFERASE 23 U/L (12-78); ALBUMIN 1.6 G/DL (3.4-5.0); ALBUMIN/GLOBULIN RATIO 0.4 (1.1-1.5); ALKALINE PHOSPHATASE 96 IU/L (46-116); ANION GAP 7 (8-16); ASPARTATE AMINO TRANSFERASE 38 U/L (10-37); BILIRUBIN,TOTAL 1.1 MG/DL (0.1-1.0); BLOOD UREA NITROGEN 19 MG/DL (7-18); CALCIUM 7.7 MG/DL (8.5-10.1); CHLORIDE 110 MMOL/L (99-107); GLUCOSE 93 MG/DL (70-104); SODIUM 140 MMOL/L (135-145); TOTAL CARBON DIOXIDE 23.1 MMOL/L (24-32); TOTAL PROTEIN 5.7 G/DL (6.4-8.2); eGFR 71 ML/MIN
[2017-06-23 08:00] VITALS: BP 142/64
[2017-06-23] MEDS: docusate sod 250mg capsule PO SCH (08:00)
[2017-06-23] MEDS: albuterol 2.5 MG/3 ML nebule NEB SCH ×2 (08:48→20:08)
[2017-06-23] MEDS: pantoprazole 40mg Tablet.DR PO SCH (08:54)
[2017-06-23] MEDS: nystatin 500,000 unit/5ML UD oral suspension PO SCH ×3 (08:54→21:52)
[2017-06-23] MEDS: finasteride 5mg tablet PO SCH (08:54)
[2017-06-23] MEDS: amiodarone 200mg tablet PO SCH ×2 (08:55→21:52)
[2017-06-23] MEDS: tamsulosin 0.4mg capsule PO SCH (08:55)
[2017-06-23] MEDS: metoprolol tartrate 12.5mg (1/2 tablet) PO SCH ×2 (08:55→21:52)
[2017-06-23] MEDS: fluticasone nasal spray 16GM bottle NS SCH (08:56)
[2017-06-23] MEDS: LACTOBACILLUS RHAMNOSUS GG 15 billion unit sprinkle caps PO SCH (08:57)
[2017-06-23] MEDS: levoTHYROXINE 25mcg tablet PO SCH (08:57)
[2017-06-23 11:00] VITALS: BP 137/74
[2017-06-23 19:00] VITALS: BP 152/65
[2017-06-23] MEDS: vancomycin 125mg/5ml ORAL solution 5ml UD bottle PO SCH (23:20)
[2017-06-24] VITALS: BP 152/65
[2017-06-24] MEDS: vancomycin 125mg/5ml ORAL solution 5ml UD bottle PO SCH ×4 (02:24→20:07)
[2017-06-24 04:37] LABS: BASOPHILS % (AUTO) 0.5 % (0-1); EOSINOPHILS # (AUTO) 0.2 X10'3 (0-0.9); EOSINOPHILS % (AUTO) 2.9 % (0-6); HEMATOCRIT 25.1 % (42.0-52.0); HEMOGLOBIN 8.6 g/dl (14.0-17.9); LYMPHOCYTES # (AUTO) 1.1 X10'3 (1.1-4.8); MEAN CORPUSCULAR HEMOGLOBIN 37.5 PG (27.0-31.0); MEAN CORPUSCULAR HGB CONC 34.4 % (33.0-36.5); MEAN PLATELET VOLUME 8.1 FL (7.4-10.4); MONOCYTES # (AUTO) 0.6 X10'3 (0-0.9); MONOCYTES % (AUTO) 7.6 % (2-12); NEUTROPHILS # (AUTO) 6.1 X10'3 (1.8-7.7); PLATELET COUNT 193 X10'3 (140-440); WHITE BLOOD COUNT 8.2 X10'3 (4.5-11.0)
[2017-06-24 05:23] LABS: ALANINE AMINOTRANSFERASE 22 U/L (12-78); ALBUMIN 1.6 G/DL (3.4-5.0); ALBUMIN/GLOBULIN RATIO 0.4 (1.1-1.5); ALKALINE PHOSPHATASE 92 IU/L (46-116); ANION GAP 7 (8-16); ASPARTATE AMINO TRANSFERASE 38 U/L (10-37); BILIRUBIN,TOTAL 1.1 MG/DL (0.1-1.0); BLOOD UREA NITROGEN 17 MG/DL (7-18); CALCIUM 7.6 MG/DL (8.5-10.1); CHLORIDE 110 MMOL/L (99-107); GLUCOSE 99 MG/DL (70-104); MAGNESIUM 1.4 MG/DL (1.5-2.4); PHOSPHORUS 2.7 MG/DL (2.3-4.5); POTASSIUM 3.9 MMOL/L (3.5-5.1); SODIUM 140 MMOL/L (135-145); TOTAL CARBON DIOXIDE 22.8 MMOL/L (24-32); TOTAL PROTEIN 5.8 G/DL (6.4-8.2); eGFR 71 ML/MIN
[2017-06-24 07:21] VITALS: BP 145/58
[2017-06-24] MEDS: docusate sod 250mg capsule PO SCH (08:00)
[2017-06-24] MEDS: pantoprazole 40mg Tablet.DR PO SCH (08:39)
[2017-06-24] MEDS: LACTOBACILLUS RHAMNOSUS GG 15 billion unit sprinkle caps PO SCH (08:39)
[2017-06-24] MEDS: metoprolol tartrate 12.5mg (1/2 tablet) PO SCH ×2 (08:39→20:05)
[2017-06-24] MEDS: finasteride 5mg tablet PO SCH (08:39)
[2017-06-24] MEDS: nystatin 500,000 unit/5ML UD oral suspension PO SCH ×3 (08:39→20:07)
[2017-06-24] MEDS: tamsulosin 0.4mg capsule PO SCH (08:39)
[2017-06-24] MEDS: amiodarone 200mg tablet PO SCH ×2 (08:39→20:07)
[2017-06-24] MEDS: fluticasone nasal spray 16GM bottle NS SCH (08:40)
[2017-06-24] MEDS: HYDROcodone/acetaminophen 5mg/325mg tablet PO PRN ×2 (08:43→23:12)
[2017-06-24] MEDS: levoTHYROXINE 25mcg tablet PO SCH (08:43)
[2017-06-24] MEDS: albuterol 2.5 MG/3 ML nebule NEB SCH ×2 (09:00→20:28)
[2017-06-24 11:28] VITALS: BP 124/58
[2017-06-24] MEDS ORDERED: magnesium 4gm in 100ml NS 100 ML IV PRN (13:00)
[2017-06-24] MEDS ORDERED: potassium Cl 20 mEq SR tablet PO PRN ×2 (13:00)
[2017-06-24] MEDS ORDERED: magnesium 2GM in 50ml NS 50 ML IV PRN (13:00)
[2017-06-24] MEDS ORDERED: potassium Cl 40MEQ/NS 500ml 500 ML IV PRN ×2 (13:00)
[2017-06-24] MEDS: magnesium Cl slow-release 64mg tablet PO PRN (13:29)
[2017-06-24] MEDS: normal saline 1000ml 1,000 ML IV SCH ×2 (15:51→17:13)
[2017-06-24 20:00] VITALS: BP 155/66
[2017-06-24] MEDS ORDERED: guaiFENesin 200 MG/10 ML oral syrup UD cup PO PRN ×2 (20:35→23:05)
[2017-06-25] VITALS: BP 128/73
[2017-06-25] MEDS ORDERED: diltiazem 30mg tablet PO ONE (01:45)
[2017-06-25] MEDS ORDERED: diltiazem 5mg/ml 5ml inj. IV ONE (01:55)
[2017-06-25] MEDS: vancomycin 125mg/5ml ORAL solution 5ml UD bottle PO SCH ×4 (02:10→19:41)
[2017-06-25] MEDS: magnesium Cl slow-release 64mg tablet PO PRN ×2 (02:10→14:34)
[2017-06-25] MEDS: HYDROcodone/acetaminophen 5mg/325mg tablet PO PRN (04:21)
[2017-06-25] MEDS: normal saline 1000ml 1,000 ML IV SCH (05:39)
[2017-06-25 05:58] LABS: MAGNESIUM 1.4 MG/DL (1.5-2.4); POTASSIUM 3.9 MMOL/L (3.5-5.1)
[2017-06-25 07:00] VITALS: BP 117/59
[2017-06-25] MEDS: docusate sod 250mg capsule PO SCH (07:13)
[2017-06-25] MEDS: albuterol 2.5 MG/3 ML nebule NEB SCH ×2 (09:02→21:08)
[2017-06-25] MEDS: finasteride 5mg tablet PO SCH (09:05)
[2017-06-25] MEDS: metoprolol tartrate 12.5mg (1/2 tablet) PO SCH ×2 (09:05→19:42)
[2017-06-25] MEDS: tamsulosin 0.4mg capsule PO SCH (09:05)
[2017-06-25] MEDS: nystatin 500,000 unit/5ML UD oral suspension PO SCH ×3 (09:05→21:49)
[2017-06-25] MEDS: pantoprazole 40mg Tablet.DR PO SCH (09:05)
[2017-06-25] MEDS: levoTHYROXINE 25mcg tablet PO SCH (09:05)
[2017-06-25] MEDS: LACTOBACILLUS RHAMNOSUS GG 15 billion unit sprinkle caps PO SCH (09:05)
[2017-06-25] MEDS: amiodarone 200mg tablet PO SCH ×2 (09:06→19:42)
[2017-06-25] MEDS: fluticasone nasal spray 16GM bottle NS SCH (09:06)
[2017-06-25 11:57] VITALS: BP 132/58
[2017-06-25] MEDS ORDERED: morphine 2 MG/ML inj. syringe IV PRN (16:40)
[2017-06-25 16:43] LABS: BASOPHILS % (AUTO) 0.2 % (0-1); EOSINOPHILS # (AUTO) 0.3 X10'3 (0-0.9); EOSINOPHILS % (AUTO) 3.5 % (0-6); HEMATOCRIT 25.3 % (42.0-52.0); HEMOGLOBIN 8.7 g/dl (14.0-17.9); LYMPHOCYTES % (AUTO) 13.3 % (21-51); MEAN CORPUSCULAR HEMOGLOBIN 37.8 PG (27.0-31.0); MEAN CORPUSCULAR HGB CONC 34.5 % (33.0-36.5); MEAN CORPUSCULAR VOLUME 109.7 FL (78-98); MEAN PLATELET VOLUME 7.8 FL (7.4-10.4); MONOCYTES # (AUTO) 0.4 X10'3 (0-0.9); MONOCYTES % (AUTO) 5.9 % (2-12); NEUTROPHILS # (AUTO) 5.8 X10'3 (1.8-7.7); NEUTROPHILS % (AUTO) 77.1 % (42-75); PLATELET COUNT 213 X10'3 (140-440); RED CELL DISTRIBUTION WIDTH 17.9 % (11.5-14.5); WHITE BLOOD COUNT 7.5 X10'3 (4.5-11.0)
[2017-06-25 16:45] LABS: ALBUMIN 1.7 G/DL (3.4-5.0); ANION GAP 4 (8-16); BLOOD UREA NITROGEN 15 MG/DL (7-18); BUN/CREATININE RATIO 13.6 (5.4-32.0); CALCIUM 7.7 MG/DL (8.5-10.1); CHLORIDE 110 MMOL/L (99-107); GLUCOSE 107 MG/DL (70-104); POTASSIUM 3.8 MMOL/L (3.5-5.1); SODIUM 139 MMOL/L (135-145); TOTAL CARBON DIOXIDE 24.7 MMOL/L (24-32); eGFR 64 ML/MIN
[2017-06-25 17:01] LABS: PLATELET ESTIMATE NORMAL
[2017-06-25 17:03] LABS: ANISOCYTOSIS 2+; BURR CELLS 1+; POIKILOCYTOSIS 1+
[2017-06-25 17:04] LABS: SCHISTOCYTES FEW
[2017-06-25] MEDS ORDERED: iohexol 300mg/ml 100ml inj. ONE (17:25)
[2017-06-25] MEDS: furosemide 40mg/4ml inj IV SCH (19:41)
[2017-06-25 20:00] VITALS: BP 151/86
[2017-06-26] VITALS: BP 134/57
[2017-06-26] MEDS: vancomycin 125mg/5ml ORAL solution 5ml UD bottle PO SCH ×4 (03:15→19:34)
[2017-06-26] MEDS: magnesium Cl slow-release 64mg tablet PO PRN ×3 (03:16→17:35)
[2017-06-26 05:27] LABS: BASOPHILS % (AUTO) 0.6 % (0-1); EOSINOPHILS # (AUTO) 0.3 X10'3 (0-0.9); EOSINOPHILS % (AUTO) 4.4 % (0-6); HEMATOCRIT 25.3 % (42.0-52.0); HEMOGLOBIN 8.7 g/dl (14.0-17.9); LYMPHOCYTES % (AUTO) 15.2 % (21-51); MEAN CORPUSCULAR HEMOGLOBIN 37.7 PG (27.0-31.0); MEAN CORPUSCULAR HGB CONC 34.4 % (33.0-36.5); MEAN CORPUSCULAR VOLUME 109.4 FL (78-98); MEAN PLATELET VOLUME 7.8 FL (7.4-10.4); MONOCYTES # (AUTO) 0.5 X10'3 (0-0.9); MONOCYTES % (AUTO) 7.7 % (2-12); NEUTROPHILS # (AUTO) 4.6 X10'3 (1.8-7.7); NEUTROPHILS % (AUTO) 72.1 % (42-75); PLATELET COUNT 214 X10'3 (140-440); RED BLOOD COUNT 2.31 X10'6 (4.70-6.10); RED CELL DISTRIBUTION WIDTH 18.4 % (11.5-14.5); WHITE BLOOD COUNT 6.4 X10'3 (4.5-11.0)
[2017-06-26 06:01] LABS: ALBUMIN 1.7 G/DL (3.4-5.0); ANION GAP 7 (8-16); BLOOD UREA NITROGEN 13 MG/DL (7-18); CALCIUM 7.9 MG/DL (8.5-10.1); CHLORIDE 110 MMOL/L (99-107); GLUCOSE 92 MG/DL (70-104); MAGNESIUM 1.3 MG/DL (1.5-2.4); POTASSIUM 3.6 MMOL/L (3.5-5.1); SODIUM 140 MMOL/L (135-145); TOTAL CARBON DIOXIDE 22.8 MMOL/L (24-32); eGFR 71 ML/MIN
[2017-06-26] MEDS: albuterol 2.5 MG/3 ML nebule NEB SCH ×2 (07:17→20:21)
[2017-06-26 08:00] VITALS: BP 127/60
[2017-06-26] MEDS: finasteride 5mg tablet PO SCH (08:36)
[2017-06-26] MEDS: pantoprazole 40mg Tablet.DR PO SCH (08:36)
[2017-06-26] MEDS: amiodarone 200mg tablet PO SCH ×2 (08:36→19:35)
[2017-06-26] MEDS: tamsulosin 0.4mg capsule PO SCH (08:36)
[2017-06-26] MEDS: docusate sod 250mg capsule PO SCH (08:37)
[2017-06-26] MEDS: levoTHYROXINE 25mcg tablet PO SCH (08:37)
[2017-06-26] MEDS: nystatin 500,000 unit/5ML UD oral suspension PO SCH ×3 (08:37→21:00)
[2017-06-26] MEDS: metoprolol tartrate 12.5mg (1/2 tablet) PO SCH ×2 (08:37→19:34)
[2017-06-26] MEDS: LACTOBACILLUS RHAMNOSUS GG 15 billion unit sprinkle caps PO SCH (08:37)
[2017-06-26] MEDS: furosemide 40mg/4ml inj IV SCH (08:37)
[2017-06-26] MEDS: fluticasone nasal spray 16GM bottle NS SCH (08:48)
[2017-06-26 11:00] VITALS: BP 141/58
[2017-06-26] MEDS: furosemide 10 MG/1 ML 10ml inj IV SCH (19:34)
[2017-06-26 20:00] VITALS: BP 131/52
[2017-06-27] VITALS: BP 163/68
[2017-06-27] MEDS ORDERED: metoprolol tartrate 12.5mg (1/2 tablet) PO ONE (00:25)
[2017-06-27] MEDS: HYDROcodone/acetaminophen 5mg/325mg tablet PO PRN (01:15)
[2017-06-27] MEDS: vancomycin 125mg/5ml ORAL solution 5ml UD bottle PO SCH ×4 (01:20→20:35)
[2017-06-27 06:26] LABS: MAGNESIUM 1.2 MG/DL (1.5-2.4); POTASSIUM 3.4 MMOL/L (3.5-5.1)
[2017-06-27 07:16] VITALS: BP 103/47
[2017-06-27] MEDS: fluticasone nasal spray 16GM bottle NS SCH (08:00)
[2017-06-27] MEDS: docusate sod 250mg capsule PO SCH (08:00)
[2017-06-27] MEDS: LACTOBACILLUS RHAMNOSUS GG 15 billion unit sprinkle caps PO SCH (08:40)
[2017-06-27] MEDS: pantoprazole 40mg Tablet.DR PO SCH (08:40)
[2017-06-27] MEDS: finasteride 5mg tablet PO SCH (08:41)
[2017-06-27] MEDS: tamsulosin 0.4mg capsule PO SCH (08:41)
[2017-06-27] MEDS: amiodarone 200mg tablet PO SCH ×2 (08:41→20:34)
[2017-06-27] MEDS: levoTHYROXINE 25mcg tablet PO SCH (08:41)
[2017-06-27] MEDS: metoprolol tartrate 12.5mg (1/2 tablet) PO SCH ×2 (08:41→20:34)
[2017-06-27] MEDS: magnesium Cl slow-release 64mg tablet PO PRN (08:41)
[2017-06-27] MEDS: furosemide 10 MG/1 ML 10ml inj IV SCH (08:42)
[2017-06-27] MEDS: nystatin 500,000 unit/5ML UD oral suspension PO SCH ×3 (08:47→20:35)
[2017-06-27] MEDS: albuterol 2.5 MG/3 ML nebule NEB SCH ×2 (09:24→20:42)
[2017-06-27 10:42] VITALS: BP 128/42
[2017-06-27] MEDS ORDERED: magnesium 2GM in 50ml NS 50 ML IV PRN (13:10)
[2017-06-27] MEDS ORDERED: potassium Cl 40MEQ/NS 500ml 500 ML IV PRN ×2 (13:10)
[2017-06-27] MEDS ORDERED: magnesium Cl slow-release 64mg tablet PO PRN (13:10)
[2017-06-27] MEDS ORDERED: potassium Cl 20 mEq SR tablet PO PRN (13:10)
[2017-06-27] MEDS ORDERED: magnesium 4gm in 100ml NS 100 ML IV PRN (13:10)
[2017-06-27] MEDS: potassium Cl 20 mEq SR tablet PO PRN ×2 (13:20→20:48)
[2017-06-27 20:00] VITALS: BP 141/57
[2017-06-27] MEDS: furosemide 40mg tablet PO SCH (20:47)
[2017-06-28] VITALS: BP 126/53
[2017-06-28] MEDS: HYDROcodone/acetaminophen 5mg/325mg tablet PO PRN (01:04)
[2017-06-28 01:15] VITALS: BP 127/48
[2017-06-28] MEDS: vancomycin 125mg/5ml ORAL solution 5ml UD bottle PO SCH ×3 (02:06→13:07)
[2017-06-28 06:11] LABS: BASOPHILS % (AUTO) 0.6 % (0-1); EOSINOPHILS # (AUTO) 0.2 X10'3 (0-0.9); EOSINOPHILS % (AUTO) 5.4 % (0-6); HEMATOCRIT 24.1 % (42.0-52.0); HEMOGLOBIN 8.4 g/dl (14.0-17.9); LYMPHOCYTES # (AUTO) 0.9 X10'3 (1.1-4.8); LYMPHOCYTES % (AUTO) 20.5 % (21-51); MEAN CORPUSCULAR HEMOGLOBIN 37.7 PG (27.0-31.0); MEAN CORPUSCULAR HGB CONC 34.8 % (33.0-36.5); MEAN CORPUSCULAR VOLUME 108.4 FL (78-98); MEAN PLATELET VOLUME 7.8 FL (7.4-10.4); MONOCYTES # (AUTO) 0.4 X10'3 (0-0.9); MONOCYTES % (AUTO) 7.9 % (2-12); NEUTROPHILS # (AUTO) 2.9 X10'3 (1.8-7.7); NEUTROPHILS % (AUTO) 65.6 % (42-75); PLATELET COUNT 187 X10'3 (140-440); RED BLOOD COUNT 2.22 X10'6 (4.70-6.10); RED CELL DISTRIBUTION WIDTH 18.1 % (11.5-14.5); WHITE BLOOD COUNT 4.5 X10'3 (4.5-11.0)
[2017-06-28 06:20] LABS: ALANINE AMINOTRANSFERASE 18 U/L (12-78); ALBUMIN 1.6 G/DL (3.4-5.0); ALBUMIN/GLOBULIN RATIO 0.4 (1.1-1.5); ALKALINE PHOSPHATASE 93 IU/L (46-116); ANION GAP 8 (8-16); ASPARTATE AMINO TRANSFERASE 45 U/L (10-37); BILIRUBIN,TOTAL 1.2 MG/DL (0.1-1.0); BLOOD UREA NITROGEN 14 MG/DL (7-18); BUN/CREATININE RATIO 12.7 (5.4-32.0); CALCIUM 7.9 MG/DL (8.5-10.1); CHLORIDE 108 MMOL/L (99-107); GLUCOSE 90 MG/DL (70-104); MAGNESIUM 1.3 MG/DL (1.5-2.4); SODIUM 142 MMOL/L (135-145); TOTAL CARBON DIOXIDE 26.3 MMOL/L (24-32); eGFR 64 ML/MIN
[2017-06-28 07:30] VITALS: BP 126/72
[2017-06-28] MEDS: LACTOBACILLUS RHAMNOSUS GG 15 billion unit sprinkle caps PO SCH (07:58)
[2017-06-28] MEDS: nystatin 500,000 unit/5ML UD oral suspension PO SCH ×2 (07:58→13:07)
[2017-06-28] MEDS: levoTHYROXINE 25mcg tablet PO SCH (07:58)
[2017-06-28] MEDS: amiodarone 200mg tablet PO SCH (07:59)
[2017-06-28] MEDS: metoprolol tartrate 12.5mg (1/2 tablet) PO SCH (07:59)
[2017-06-28] MEDS: pantoprazole 40mg Tablet.DR PO SCH (07:59)
[2017-06-28] MEDS: tamsulosin 0.4mg capsule PO SCH (07:59)
[2017-06-28] MEDS: finasteride 5mg tablet PO SCH (07:59)
[2017-06-28] MEDS: furosemide 40mg tablet PO SCH (07:59)
[2017-06-28] MEDS: docusate sod 250mg capsule PO SCH (08:00)
[2017-06-28] MEDS ORDERED: furosemide 40 MG/4 ML oral solution UD cup PO SCH (08:00)
[2017-06-28] MEDS: fluticasone nasal spray 16GM bottle NS SCH (08:01)
[2017-06-28] MEDS: albuterol 2.5 MG/3 ML nebule NEB SCH (08:14)
[2017-06-28] MEDS ORDERED: spironolactone 25 MG tablet PO SCH (08:30)
[2017-06-28 11:33] VITALS: BP 132/60
[2017-06-28] MEDS ORDERED: VANC5VIA PO (12:23)
== END 2017-06-28 14:42 | DRG 871 ==
LOC: ER 14:32 → ED HOLD 18:11 → SUR 3N 21:00 → PCU 3S 06-14 20:17 → SUR 3N 06-20 16:08
PROVIDERS: ADMIT Hospitalist; ATTEND Family Medicine
PROC: BW251ZZ Computerized Tomography (CT Scan) of Chest, Abdomen and Pelvis using Low Osmolar Contrast (ICD-10-PCS; principal; 2017-06-25)
DX: A41.9 Sepsis, unspecified organism (principal); E43 Unspecified severe protein-calorie malnutrition; A04.72 Enterocolitis due to Clostridium difficile, not specified as recurrent; J18.9 Pneumonia, unspecified organism; I13.0 Hypertensive heart and chronic kidney disease with heart failure and stage 1 through stage 4 chronic kidney disease, or unspecified chronic kidney disease; E83.42 Hypomagnesemia; R18.8 Other ascites; I50.32 Chronic diastolic (congestive) heart failure; I48.0 Paroxysmal atrial fibrillation; N39.0 Urinary tract infection, site not specified; N13.2 Hydronephrosis with renal and ureteral calculous obstruction; K57.30 Diverticulosis of large intestine without perforation or abscess without bleeding; K74.60 Unspecified cirrhosis of liver; K21.9 Gastro-esophageal reflux disease without esophagitis; M54.9 Dorsalgia, unspecified; I95.1 Orthostatic hypotension; N40.1 Benign prostatic hyperplasia with lower urinary tract symptoms; N18.9 Chronic kidney disease, unspecified; D64.9 Anemia, unspecified; E03.9 Hypothyroidism, unspecified; G89.29 Other chronic pain; Z66 Do not resuscitate; Z90.49 Acquired absence of other specified parts of digestive tract; Z88.0 Allergy status to penicillin; Z79.899 Other long term (current) drug therapy; Z79.01 Long term (current) use of anticoagulants; Z86.73 Personal history of transient ischemic attack (TIA), and cerebral infarction without residual deficits; Z87.442 Personal history of urinary calculi; Z68.30 Body mass index [BMI] 30.0-30.9, adult; Z22.322 Carrier or suspected carrier of Methicillin resistant Staphylococcus aureus
CPT/HCPCS: 36415; 71045; 71260; 74018; 74176; 74177; 80048; 80053; 80202; 81001; 82272; 83605; 83690; 83735; 83880; 84100; 84132; 84145; 84439; 84443; 84480; 84484; 85025; 85610; 85730; 87040; 87070; 87077; 87088; 87186; 87324; 87449; 87502; 87503; 93005; 93306; 94640; 94760; 96365; 96366; 96367; 96375; 97110; 97116; 97161; 97530; 99285; A6212; A6213; A6258; J0282; J0692; J0696; J1160; J1650; J1940; J2270; J2405; J3370; J3475; J3490; J7030; Q9967

== ENCOUNTER 2017-08-30 21:22 | Inpatient (IN) | payer MEDICARE, MEDICAID, OTHER ==
[~2017-08-30] VITALS: Ht 182.9 cm; Wt 72.2 kg
[~2017-08-30 21:22] MED LIST changes: +ACET500C5 PO; -ALBU6.7H INH; +AZEL6DRO6 EACHEYE; +CALC1TAB81; -CEPH500C5 PO; +IRON150C5 PO; +LEVO25TA2 PO; -LEVO25TA7 PO; +MAGN400C PO; -PHEN-716 PO; +PROP10TA10 PO; +VANC5VIA PO
[2017-08-30] MEDS ORDERED: normal saline 1000ML IV soln IV ONE (21:50)
[2017-08-30] MEDS ORDERED: pantoprazole IV 80 MG in normal saline 100ml IV soln 100 ML IV ONE (21:50)
[2017-08-30] MEDS ORDERED: ondansetron/PF 4mg/2ml inj IV ONE (21:50)
[2017-08-30] MEDS ORDERED: pantoprazole 40 MG vial IV SCH (21:55)
[2017-08-30] MEDS: pantoprazole 40 MG vial IV SCH ×2 (21:58→22:35)
[2017-08-30 22:04] LABS: BASOPHILS % (AUTO) 0.3 % (0-1); EOSINOPHILS # (AUTO) 0.1 X10'3 (0-0.9); EOSINOPHILS % (AUTO) 1.3 % (0-6); HEMATOCRIT 24.8 % (42.0-52.0); HEMOGLOBIN 8.5 g/dl (14.0-17.9); LYMPHOCYTES # (AUTO) 0.8 X10'3 (1.1-4.8); MEAN CORPUSCULAR HEMOGLOBIN 39.3 PG (27.0-31.0); MEAN CORPUSCULAR HGB CONC 34.2 % (33.0-36.5); MEAN CORPUSCULAR VOLUME 114.7 FL (78-98); MEAN PLATELET VOLUME 8.1 FL (7.4-10.4); MONOCYTES # (AUTO) 0.3 X10'3 (0-0.9); MONOCYTES % (AUTO) 5.5 % (2-12); NEUTROPHILS # (AUTO) 3.8 X10'3 (1.8-7.7); NEUTROPHILS % (AUTO) 76.9 % (42-75); PLATELET COUNT 189 X10'3 (140-440); RED BLOOD COUNT 2.16 X10'6 (4.70-6.10); RED CELL DISTRIBUTION WIDTH 18.3 % (11.5-14.5)
[2017-08-30 22:15] LABS: INR 1.2 INR; PARTIAL THROMBOPLASTIN TIME 26 SECONDS (22-32)
[2017-08-30 22:20] LABS: ALANINE AMINOTRANSFERASE 39 U/L (12-78); ALBUMIN 2.1 G/DL (3.4-5.0); ALBUMIN/GLOBULIN RATIO 0.4 (1.1-1.5); ALKALINE PHOSPHATASE 116 IU/L (46-116); ANION GAP 10 (8-16); ASPARTATE AMINO TRANSFERASE 54 U/L (10-37); BLOOD UREA NITROGEN 34 MG/DL (7-18); BUN/CREATININE RATIO 22.1 (5.4-32.0); CALCIUM 8.7 MG/DL (8.5-10.1); CHLORIDE 106 MMOL/L (99-107); CREATININE 1.54 MG/DL (0.60-1.10); GLUCOSE 128 MG/DL (70-104); POTASSIUM 4.5 MMOL/L (3.5-5.1); SODIUM 140 MMOL/L (135-145); TOTAL CARBON DIOXIDE 24.1 MMOL/L (24-32); TOTAL PROTEIN 7.3 G/DL (6.4-8.2); eGFR 43 ML/MIN
[2017-08-30 22:31] LABS: LARGE PLATELETS FEW; PLATELET ESTIMATE NORMAL; POLYCHROMASIA FEW
[2017-08-30 22:32] LABS: ANISOCYTOSIS 2+; TARGET CELLS FEW
[2017-08-31] MEDS ORDERED: levoFLOXACIN-Levaquin 750MG/D5 150 ML IV ONE (00:15)
[2017-08-31 00:36] LABS: CLARITY,URINE SLIGHTLY CLOUDY (Clear); COLOR,URINE AMBER (Yellow); GLUCOSE, URINE NEGATIVE (Neg); KETONES,URINE NEGATIVE (Neg); LEUKOCYTE ESTERASE ,URINE SMALL (Neg); NITRITES, URINE NEGATIVE (Neg); OCCULT BLOOD,URINE LARGE (Neg); PROTEIN,URINE 30 mg/dl (Neg); UA COLLECTION TYPE FOLEY CATH; UROBILINOGEN,URINE 0.2 E.U/dL (0.2-1.0)
[2017-08-31 00:51] LABS: FINE GRANULAR CAST 0-3 /LPF (NEGATIVE); HYALINE CASTS 0-3 /LPF (NEGATIVE)
[2017-08-31 00:53] LABS: RBC,URINE 50-100 /HPF (0-2)
[2017-08-31 00:55] LABS: AMORPHOUS URATES 1+; BACTERIA,URINE 1+ /HPF (Neg); MUCUS STRANDS MODERATE /LPF (Neg); SQUAMOUS EPITHELIAL CELL,UR NONE SEEN /LPF (FEW)
[2017-08-31] MEDS ORDERED: pantoprazole 40MG/NS 100ML BAG 100 ML IV ONE (01:00)
[2017-08-31] MEDS ORDERED: magnesium 2GM in 50ml NS 50 ML IV PRN (01:35)
[2017-08-31] MEDS ORDERED: potassium Cl 40MEQ/NS 500ml 500 ML IV PRN ×2 (01:35)
[2017-08-31] MEDS ORDERED: potassium Cl 20 mEq SR tablet PO PRN ×2 (01:35)
[2017-08-31] MEDS ORDERED: magnesium 4gm in 100ml NS 100 ML IV PRN (01:35)
[2017-08-31] MEDS ORDERED: magnesium Cl slow-release 64mg tablet PO PRN (01:35)
[2017-08-31] MEDS ORDERED: mag hydrox/Alum hydrox/simeth 30ml oral suspension PO PRN (01:35)
[2017-08-31] MEDS ORDERED: acetaminophen 325mg tablet PO PRN (01:35)
[2017-08-31] MEDS ORDERED: HYDROmorphone inj. 0.5 MG/0.5 ML DISP.SYRIN IV PRN (01:35)
[2017-08-31] MEDS ORDERED: magnesium hydroxide 30ml (MOM) UD suspension PO PRN (01:35)
[2017-08-31] MEDS: normal saline 1000ml 1,000 ML IV SCH ×2 (03:43→09:47)
[2017-08-31] MEDS ORDERED: pantoprazole 40mg Tablet.DR PO SCH (08:00)
[2017-08-31] MEDS: lactobacillus rhamnosus 10,000 MMU CELLS/CAPSULE PO SCH ×2 (08:00→20:00)
[2017-08-31] MEDS: K and/or MAG REPLACEMENT MC SCH (08:00)
[2017-08-31 09:30] VITALS: BP 134/50
[2017-08-31 11:00] VITALS: BP 132/50
[2017-08-31 18:00] VITALS: BP 139/52
[2017-08-31] MEDS: levoFLOXACIN-Levaquin 500mg/D5 100 ML IV SCH (20:04)
[2017-08-31] MEDS: propranolol 10mg tablet PO SCH (20:05)
[2017-09-01] VITALS (18 sets, daily range): BP systolic 83–145; BP diastolic 40–56
[2017-09-01] MEDS: normal saline 1000ml 1,000 ML IV SCH ×2 (03:01→22:40)
[2017-09-01] MEDS: ondansetron/PF 4mg/2ml inj IV PRN ×2 (03:43→13:46)
[2017-09-01 05:34] LABS: BASOPHILS % (AUTO) 0.6 % (0-1); EOSINOPHILS # (AUTO) 0.2 X10'3 (0-0.9); HEMOGLOBIN 7.1 g/dl (14.0-17.9); LYMPHOCYTES # (AUTO) 0.9 X10'3 (1.1-4.8); LYMPHOCYTES % (AUTO) 21.4 % (21-51); MEAN CORPUSCULAR HGB CONC 34.4 % (33.0-36.5); MEAN CORPUSCULAR VOLUME 116.1 FL (78-98); MEAN PLATELET VOLUME 7.9 FL (7.4-10.4); MONOCYTES # (AUTO) 0.3 X10'3 (0-0.9); MONOCYTES % (AUTO) 8.2 % (2-12); NEUTROPHILS # (AUTO) 2.7 X10'3 (1.8-7.7); NEUTROPHILS % (AUTO) 64.8 % (42-75); PLATELET COUNT 152 X10'3 (140-440); RED BLOOD COUNT 1.78 X10'6 (4.70-6.10); RED CELL DISTRIBUTION WIDTH 17.8 % (11.5-14.5); WHITE BLOOD COUNT 4.2 X10'3 (4.5-11.0)
[2017-09-01 06:09] LABS: ALANINE AMINOTRANSFERASE 32 U/L (12-78); ALBUMIN 1.7 G/DL (3.4-5.0); ALBUMIN/GLOBULIN RATIO 0.4 (1.1-1.5); ALKALINE PHOSPHATASE 89 IU/L (46-116); ANION GAP 9 (8-16); ASPARTATE AMINO TRANSFERASE 47 U/L (10-37); BLOOD UREA NITROGEN 32 MG/DL (7-18); BUN/CREATININE RATIO 22.2 (5.4-32.0); CHLORIDE 111 MMOL/L (99-107); CREATININE 1.44 MG/DL (0.60-1.10); GLUCOSE 95 MG/DL (70-104); MAGNESIUM 1.6 MG/DL (1.5-2.4); POTASSIUM 4.6 MMOL/L (3.5-5.1); SODIUM 142 MMOL/L (135-145); TOTAL CARBON DIOXIDE 21.8 MMOL/L (24-32); TOTAL PROTEIN 6.1 G/DL (6.4-8.2); eGFR 47 ML/MIN
[2017-09-01 06:21] LABS: HEMATOCRIT 20.7 % (42.0-52.0)
[2017-09-01] MEDS: K and/or MAG REPLACEMENT MC SCH (06:56)
[2017-09-01 07:17] LABS: PLATELET ESTIMATE NORMAL
[2017-09-01 07:18] LABS: ANISOCYTOSIS 2+; POLYCHROMASIA 1+
[2017-09-01 07:19] LABS: SPHEROCYTES FEW; TARGET CELLS FEW
[2017-09-01 07:20] LABS: SCHISTOCYTES FEW
[2017-09-01 07:21] LABS: ELLIPTOCYTES 1+
[2017-09-01] MEDS: pantoprazole 40 MG vial IV SCH ×2 (08:35→19:57)
[2017-09-01] MEDS: fluticasone nasal spray 16GM bottle NS SCH (08:38)
[2017-09-01] MEDS: lactobacillus rhamnosus 10,000 MMU CELLS/CAPSULE PO SCH ×2 (08:40→19:57)
[2017-09-01] MEDS: tamsulosin 0.4mg capsule PO SCH (08:41)
[2017-09-01] MEDS: magnesium oxide 400mg tablet PO SCH (08:42)
[2017-09-01] MEDS: propranolol 10mg tablet PO SCH ×2 (08:42→19:57)
[2017-09-01] MEDS: amLODIPine 5mg tablet PO SCH (08:43)
[2017-09-01] MEDS: iron polysaccharide complex 150mg capsule PO SCH (08:43)
[2017-09-01] MEDS: beta-carotene(A) w/C & E + minerals tab PO SCH (08:44)
[2017-09-01] MEDS: finasteride 5mg tablet PO SCH (08:44)
[2017-09-01] MEDS: phenazopyridine 100mg tablet PO SCH ×3 (08:45→18:00)
[2017-09-01] MEDS: levoTHYROXINE 25mcg tablet PO SCH (08:45)
[2017-09-01] MEDS ORDERED: LIDOcaine Viscous 15ml cup ONE (11:08)
[2017-09-01] MEDS ORDERED: fentaNYL/PF 50MCG/1 ML 2ML syringe ONE (11:08)
[2017-09-01] MEDS ORDERED: MIDAZolam 5mg/5ml vial ONE (11:08)
[2017-09-01] MEDS: HYDROmorphone inj. 0.5 MG/0.5 ML DISP.SYRIN IV PRN (19:57)
[2017-09-01 20:18] LABS: HEMATOCRIT 27.2 % (42.0-52.0); HEMOGLOBIN 9.4 g/dl (14.0-17.9); MEAN CORPUSCULAR HEMOGLOBIN 35.5 PG (27.0-31.0); MEAN CORPUSCULAR HGB CONC 34.6 % (33.0-36.5); MEAN CORPUSCULAR VOLUME 102.5 FL (78-98); MEAN PLATELET VOLUME 7.7 FL (7.4-10.4); PLATELET COUNT 152 X10'3 (140-440); RED BLOOD COUNT 2.65 X10'6 (4.70-6.10); RED CELL DISTRIBUTION WIDTH 29.3 % (11.5-14.5); WHITE BLOOD COUNT 3.9 X10'3 (4.5-11.0)
[2017-09-01] MEDS: levoFLOXACIN-Levaquin 500mg/D5 100 ML IV SCH (20:23)
[2017-09-02] VITALS: BP 128/50
[2017-09-02] MEDS: HYDROmorphone inj. 0.5 MG/0.5 ML DISP.SYRIN IV PRN ×2 (02:33→22:43)
[2017-09-02 02:45] LABS: ALANINE AMINOTRANSFERASE 30 U/L (12-78); ALBUMIN 1.7 G/DL (3.4-5.0); ALBUMIN/GLOBULIN RATIO 0.4 (1.1-1.5); ALKALINE PHOSPHATASE 90 IU/L (46-116); ANION GAP 8 (8-16); ASPARTATE AMINO TRANSFERASE 43 U/L (10-37); BILIRUBIN,TOTAL 1.7 MG/DL (0.1-1.0); BLOOD UREA NITROGEN 33 MG/DL (7-18); BUN/CREATININE RATIO 22.9 (5.4-32.0); CALCIUM 7.7 MG/DL (8.5-10.1); CHLORIDE 110 MMOL/L (99-107); CREATININE 1.44 MG/DL (0.60-1.10); GLUCOSE 85 MG/DL (70-104); MAGNESIUM 1.6 MG/DL (1.5-2.4); POTASSIUM 4.7 MMOL/L (3.5-5.1); SODIUM 142 MMOL/L (135-145); TOTAL CARBON DIOXIDE 24.4 MMOL/L (24-32); eGFR 47 ML/MIN
[2017-09-02 03:48] LABS: BASOPHILS % (AUTO) 0.1 % (0-1); EOSINOPHILS # (AUTO) 0.1 X10'3 (0-0.9); EOSINOPHILS % (AUTO) 3.8 % (0-6); HEMATOCRIT 27.8 % (42.0-52.0); HEMOGLOBIN 9.5 g/dl (14.0-17.9); LYMPHOCYTES # (AUTO) 0.9 X10'3 (1.1-4.8); LYMPHOCYTES % (AUTO) 26.7 % (21-51); MEAN CORPUSCULAR HEMOGLOBIN 34.8 PG (27.0-31.0); MEAN CORPUSCULAR VOLUME 102.4 FL (78-98); MEAN PLATELET VOLUME 8.1 FL (7.4-10.4); MONOCYTES # (AUTO) 0.3 X10'3 (0-0.9); MONOCYTES % (AUTO) 9.8 % (2-12); NEUTROPHILS # (AUTO) 2.1 X10'3 (1.8-7.7); NEUTROPHILS % (AUTO) 59.6 % (42-75); PLATELET COUNT 145 X10'3 (140-440); RED BLOOD COUNT 2.72 X10'6 (4.70-6.10); RED CELL DISTRIBUTION WIDTH 28.1 % (11.5-14.5); WHITE BLOOD COUNT 3.4 X10'3 (4.5-11.0)
[2017-09-02] MEDS: normal saline 1000ml 1,000 ML IV SCH ×2 (04:31→23:39)
[2017-09-02] MEDS: K and/or MAG REPLACEMENT MC SCH (06:58)
[2017-09-02 07:50] VITALS: BP 115/48
[2017-09-02] MEDS: beta-carotene(A) w/C & E + minerals tab PO SCH (08:03)
[2017-09-02] MEDS: iron polysaccharide complex 150mg capsule PO SCH (08:03)
[2017-09-02] MEDS: magnesium oxide 400mg tablet PO SCH (08:03)
[2017-09-02] MEDS: amLODIPine 5mg tablet PO SCH (08:03)
[2017-09-02] MEDS: levoTHYROXINE 25mcg tablet PO SCH (08:03)
[2017-09-02] MEDS: lactobacillus rhamnosus 10,000 MMU CELLS/CAPSULE PO SCH ×2 (08:03→19:16)
[2017-09-02] MEDS: pantoprazole 40 MG vial IV SCH ×2 (08:03→19:15)
[2017-09-02] MEDS: fluticasone nasal spray 16GM bottle NS SCH (08:04)
[2017-09-02] MEDS: tamsulosin 0.4mg capsule PO SCH (08:04)
[2017-09-02] MEDS: phenazopyridine 100mg tablet PO SCH ×3 (08:04→19:16)
[2017-09-02] MEDS: propranolol 10mg tablet PO SCH ×2 (08:04→19:16)
[2017-09-02] MEDS: finasteride 5mg tablet PO SCH (08:05)
[2017-09-02 11:18] VITALS: BP 109/43
[2017-09-02 14:11] LABS: HEMATOCRIT 28.2 % (42.0-52.0); HEMOGLOBIN 9.7 g/dl (14.0-17.9); MEAN CORPUSCULAR HEMOGLOBIN 35.5 PG (27.0-31.0); MEAN CORPUSCULAR HGB CONC 34.3 % (33.0-36.5); MEAN CORPUSCULAR VOLUME 103.5 FL (78-98); PLATELET COUNT 151 X10'3 (140-440); RED BLOOD COUNT 2.72 X10'6 (4.70-6.10); RED CELL DISTRIBUTION WIDTH 29.4 % (11.5-14.5); WHITE BLOOD COUNT 3.5 X10'3 (4.5-11.0)
[2017-09-02 19:00] VITALS: BP 116/42
[2017-09-02 20:27] LABS: HEMATOCRIT 27.4 % (42.0-52.0); HEMOGLOBIN 9.4 g/dl (14.0-17.9); MEAN CORPUSCULAR HEMOGLOBIN 35.6 PG (27.0-31.0); MEAN CORPUSCULAR HGB CONC 34.3 % (33.0-36.5); MEAN CORPUSCULAR VOLUME 103.8 FL (78-98); MEAN PLATELET VOLUME 7.6 FL (7.4-10.4); PLATELET COUNT 148 X10'3 (140-440); RED BLOOD COUNT 2.64 X10'6 (4.70-6.10); RED CELL DISTRIBUTION WIDTH 29.2 % (11.5-14.5); WHITE BLOOD COUNT 3.9 X10'3 (4.5-11.0)
[2017-09-02] MEDS: levoFLOXACIN-Levaquin 500mg/D5 100 ML IV SCH (21:15)
[2017-09-02 22:10] LABS: ANISOCYTOSIS 3+; PLATELET ESTIMATE NORMAL
[2017-09-02 22:12] LABS: ELLIPTOCYTES 1+; POLYCHROMASIA 1+; SCHISTOCYTES FEW
[2017-09-02 22:15] LABS: SPHEROCYTES FEW
[2017-09-03] VITALS: BP 110/39
[2017-09-03 06:09] LABS: BASOPHILS % (AUTO) 0.4 % (0-1); EOSINOPHILS # (AUTO) 0.1 X10'3 (0-0.9); EOSINOPHILS % (AUTO) 2.6 % (0-6); HEMATOCRIT 25.6 % (42.0-52.0); HEMOGLOBIN 8.9 g/dl (14.0-17.9); LYMPHOCYTES # (AUTO) 0.9 X10'3 (1.1-4.8); LYMPHOCYTES % (AUTO) 24.8 % (21-51); MEAN CORPUSCULAR HEMOGLOBIN 35.8 PG (27.0-31.0); MEAN CORPUSCULAR HGB CONC 34.8 % (33.0-36.5); MEAN CORPUSCULAR VOLUME 102.9 FL (78-98); MEAN PLATELET VOLUME 7.8 FL (7.4-10.4); MONOCYTES # (AUTO) 0.3 X10'3 (0-0.9); MONOCYTES % (AUTO) 8.8 % (2-12); NEUTROPHILS # (AUTO) 2.4 X10'3 (1.8-7.7); NEUTROPHILS % (AUTO) 63.4 % (42-75); PLATELET COUNT 132 X10'3 (140-440); RED BLOOD COUNT 2.48 X10'6 (4.70-6.10); RED CELL DISTRIBUTION WIDTH 28.4 % (11.5-14.5); WHITE BLOOD COUNT 3.7 X10'3 (4.5-11.0)
[2017-09-03 06:52] LABS: ALANINE AMINOTRANSFERASE 26 U/L (12-78); ALBUMIN 1.5 G/DL (3.4-5.0); ALBUMIN/GLOBULIN RATIO 0.4 (1.1-1.5); ALKALINE PHOSPHATASE 87 IU/L (46-116); ANION GAP 10 (8-16); ASPARTATE AMINO TRANSFERASE 36 U/L (10-37); BILIRUBIN,TOTAL 1.3 MG/DL (0.1-1.0); BLOOD UREA NITROGEN 33 MG/DL (7-18); BUN/CREATININE RATIO 23.2 (5.4-32.0); CALCIUM 7.7 MG/DL (8.5-10.1); CHLORIDE 110 MMOL/L (99-107); CREATININE 1.42 MG/DL (0.60-1.10); GLUCOSE 87 MG/DL (70-104); MAGNESIUM 1.5 MG/DL (1.5-2.4); POTASSIUM 4.4 MMOL/L (3.5-5.1); SODIUM 141 MMOL/L (135-145); TOTAL CARBON DIOXIDE 21.4 MMOL/L (24-32); TOTAL PROTEIN 5.6 G/DL (6.4-8.2); eGFR 47 ML/MIN
[2017-09-03 06:53] VITALS: BP 135/48
[2017-09-03] MEDS: K and/or MAG REPLACEMENT MC SCH (07:16)
[2017-09-03] MEDS: propranolol 10mg tablet PO SCH (07:17)
[2017-09-03] MEDS: phenazopyridine 100mg tablet PO SCH (07:23)
[2017-09-03] MEDS: beta-carotene(A) w/C & E + minerals tab PO SCH (07:24)
[2017-09-03] MEDS: tamsulosin 0.4mg capsule PO SCH (07:24)
[2017-09-03] MEDS: levoTHYROXINE 25mcg tablet PO SCH (07:24)
[2017-09-03] MEDS: iron polysaccharide complex 150mg capsule PO SCH (07:24)
[2017-09-03] MEDS: pantoprazole 40 MG vial IV SCH (07:24)
[2017-09-03] MEDS: lactobacillus rhamnosus 10,000 MMU CELLS/CAPSULE PO SCH (07:24)
[2017-09-03] MEDS: magnesium oxide 400mg tablet PO SCH (07:24)
[2017-09-03] MEDS: amLODIPine 5mg tablet PO SCH (07:24)
[2017-09-03] MEDS: finasteride 5mg tablet PO SCH (07:25)
[2017-09-03] MEDS: fluticasone nasal spray 16GM bottle NS SCH (07:28)
[2017-09-03 09:30] LABS: PLATELET ESTIMATE DECREASED
[2017-09-03 09:31] LABS: ANISOCYTOSIS 3+; BURR CELLS FEW; ELLIPTOCYTES 1+; POIKILOCYTOSIS 1+; POLYCHROMASIA FEW; TEAR DROP CELLS FEW
== END 2017-09-03 12:21 | DRG 432 ==
LOC: ER 21:24 → ED HOLD 08-31 01:35 → MED 3N 08-31 09:26
PROVIDERS: ADMIT Internal Medicine; ATTEND Internal Medicine
PROC: 30233N1 Transfusion of Nonautologous Red Blood Cells into Peripheral Vein, Percutaneous Approach (ICD-10-PCS; principal; 2017-09-01)
PROC: 06L38CZ Occlusion of Esophageal Vein with Extraluminal Device, Via Natural or Artificial Opening Endoscopic (ICD-10-PCS; 2017-09-01)
DX: K74.60 Unspecified cirrhosis of liver (principal); I85.01 Esophageal varices with bleeding; J90 Pleural effusion, not elsewhere classified; N17.9 Acute kidney failure, unspecified; K76.6 Portal hypertension; E44.1 Mild protein-calorie malnutrition; E83.42 Hypomagnesemia; N39.0 Urinary tract infection, site not specified; N13.2 Hydronephrosis with renal and ureteral calculous obstruction; E11.9 Type 2 diabetes mellitus without complications; D50.0 Iron deficiency anemia secondary to blood loss (chronic); E86.0 Dehydration; D53.9 Nutritional anemia, unspecified; K31.819 Angiodysplasia of stomach and duodenum without bleeding; E03.9 Hypothyroidism, unspecified; K31.89 Other diseases of stomach and duodenum; I10 Essential (primary) hypertension; G89.29 Other chronic pain; J30.9 Allergic rhinitis, unspecified; K21.9 Gastro-esophageal reflux disease without esophagitis; K59.00 Constipation, unspecified; N40.0 Benign prostatic hyperplasia without lower urinary tract symptoms; Z66 Do not resuscitate; Z88.0 Allergy status to penicillin; Z79.899 Other long term (current) drug therapy; Z90.49 Acquired absence of other specified parts of digestive tract; Z87.442 Personal history of urinary calculi; Z86.73 Personal history of transient ischemic attack (TIA), and cerebral infarction without residual deficits; Z68.21 Body mass index [BMI] 21.0-21.9, adult
CPT/HCPCS: 36415; 43244; 71045; 74176; 80053; 81001; 82948; 83735; 85025; 85027; 85610; 85730; 86885; 86900; 86901; 86920; 87070; 87088; 93005; A4620; C9113; G0500; J1170; J1956; J2250; J2405; J3010; J7030; P9016